=== PATIENT | female | born 1955 | race Caucasian/White ===

== ENCOUNTER 2018-08-07 05:30 | Inpatient (IN) | payer OTHER ==
[2018-08-01 10:18] LABS: HEMATOCRIT 42.7 % (37.0-47.0); HEMOGLOBIN 14.6 gm/dL (12.0-15.0); MCH 31.2 pg (26.0-34.0); MCHC 34.3 g/dL (28.0-37.0); MCV 90.9 fL (80.0-100.0); RBC 4.69 mil/uL (4.20-5.00); WBC 5.3 thou/uL (4.0-11.0)
[2018-08-01 10:20] LABS: URINE BILIRUBIN NEGATIVE (Negative); URINE BLOOD TRACE (Negative); URINE CLARITY CLEAR; URINE COLOR YELLOW; URINE GLUCOSE-RANDOM* NEGATIVE (Negative); URINE KETONES NEGATIVE (Negative); URINE LEUKOCYTES-REFLEX NEGATIVE (Negative); URINE NITRITE-REFLEX NEGATIVE (Negative); URINE PROTEIN (DIPSTICK) NEGATIVE (Negative); URINE SPECIFIC GRAVITY <= 1.005 (1.005-1.035); URINE UROBILINOGEN 0.2 E.U./dl (0.2-1.0)
[2018-08-01 10:26] LABS: ALBUMIN 4.1 g/dL (3.4-5.0); CALCIUM 9.5 mg/dL (8.5-10.1); CREATININE 0.8 mg/dL (0.6-1.0); POTASSIUM 3.9 mmol/L (3.5-5.1)
[2018-08-01 10:27] LABS: PROTIME 10.4 Seconds (9.3-11.4)
--- NOTE | 2018-08-01 11:32 | EKG ---
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 : 1955 Requested By: Marvin Miller Order Number: [id number] MD: Norberto Martinez Measurements Intervals [place] Rate: 72 P: 70 KS: 93 QRS: 19 QRSD: 129 T: -14 QT: 386 QTc: 423 Interpretive Statements Sinus rhythm Short [place] interval Right bundle branch block Compared to ECG 06/25/2008 14:26:53 Short [place] interval more prominent Right bundle-branch block now present Electronically Signed On 08-01-2018 11:32:23 CUSTOMER CARE CONSULTANT by Norberto Martinez [email or web address] ��������������������������������������������� <ELECTRONICALLY SIGNED> ���������������������������������������� By: Norberto Martinez MD ��������������������������������������������� 08/01/18 1132 [id number] Norberto Martinez MD /EPI
[~2018-08-07] VITALS: Ht 165.1 cm; Wt 81.6 kg
[~2018-08-07 05:30] MED LIST: ALLOPURINOL 30300 M1 PO; AMBIEN 10 MG TA10 MG OR; CALCIUM 600+D31 EACH PO; CELEBREX 200 M200 M1 PO; COLACE100 MG PO; ENDOCET 5-3251 EACH; FIBER LAXATIVE500 MG OR; FOLIC ACID0.4 MG PO; FUROSEMIDE 20 M20 M1 PO; LUNESTA1 MG PO; NASONEX17 GM NS; NORCO 5-325 TA1 EACH PO; NORFLEX100 MG PO; PRILOSEC 20 MG20 MG PO; QUINAPRIL 20 MG20 MG OR; SPIRONOLACT/HCT1 TA1 OR; VITAMIN B-12100 MC1 PO; ZANAFLEX4 MG PO; ZYRTEC10 M2 OR
[2018-08-07 15:10] VITALS: BP 146/69
[2018-08-07 19:44] VITALS: BP 135/78
[2018-08-08 00:47] VITALS: BP 94/49
[2018-08-08 04:00] VITALS: BP 93/42
[2018-08-08 04:36] LABS: HEMATOCRIT 31.7 % (37.0-47.0); HEMOGLOBIN 10.7 gm/dL (12.0-15.0); MCHC 33.8 g/dL (28.0-37.0); MCV 91.7 fL (80.0-100.0); RBC 3.46 mil/uL (4.20-5.00); RDW 13.7 % (10.5-14.5); WBC 7.1 thou/uL (4.0-11.0)
--- NOTE | 2018-08-08 07:38 | O ---
[facility] [place] [address] OPERATIVE REPORT Name: JOYCE POLLOCK Room #: 453-P [facility] IN M.R.#: [id number] Admission: 08/07/18 ������������������ Attend Phys: Marvin Miller MD Discharge: ������������������ Date of : 55 Report #: [id number] THIS REPORT FOR: //name// CC: Nat Marinjossue Marvin Miller DATE OF SERVICE: 08/07/2018 PREOPERATIVE DIAGNOSIS: Left knee osteoarthritis. POSTOPERATIVE DIAGNOSIS: Left knee osteoarthritis. PROCEDURE: Left total knee arthroplasty using Navio robotic assistance. SURGEON: Marvin Miller MD CRNA: Mayi Ventura PA-C. INDICATIONS FOR ASSISTANCE: Throughout the case, extensive retraction and manipulation of the knee was required. This was afforded to me by my medical assistant cardiology. ANESTHESIA: LMA with an adductor canal block. IMPLANTS: Rodriguez [employer] Nephew size 5 Journey II BCS posterior stabilized femur, a size 3 tibia, a size 10 polyethylene and a size 29 patella. TOURNIQUET TIME: 68 minutes. ESTIMATED BLOOD LOSS: 100 mL. COMPLICATIONS: None. SPECIMENS: None. CONDITION UPON LEAVING THE OPERATING ROOM: Stable. INDICATIONS FOR PROCEDURE: The patient is a pleasant 62-year-old female with severe left knee osteoarthritis. She failed conservative measures for this and after discussion with her, she elected for left total knee arthroplasty. DESCRIPTION OF PROCEDURE: Risks, benefits, alternatives, complications were discussed in detail with the patient including but not limited to risk of anesthesia, risk of damage to nerves, arteries and blood vessels, risk for infection and bleeding, risk for continued knee pain, and need for reoperation. Informed consent was obtained from the patient. Left knee was appropriately marked in the preoperative holding area. IV Ancef was given for preoperative [facility] [address] [place] [address] OPERATIVE REPORT Name: ARGELIA POLLOCKDandre Harris Room #: 453-P [facility] IN ..#: [id number] Admission: 08/07/18 ������������������ Attend Phys: Marvin Miller MD Discharge: ������������������ Date of : 55 Report #: [id number]. Adductor canal block was placed by Anesthesia. She was brought to the operating room and placed in the supine position on the operating room table. LMA anesthesia was induced without complication. Tourniquet was placed on the left thigh. Left lower extremity was prepped and draped in normal sterile fashion. Timeout was performed properly identifying the patient and procedure as well as the instrumentation and implants. All in the operating room were in agreement. Left lower extremity was exsanguinated. Tourniquet was inflated. Tourniquet time was 68 minutes. A standard midline approach to the knee was made with a 10 blade through the skin. Dissection was taken down sharply to the fascia and deep flaps were developed medially and laterally. A fresh 10 blade was used to make a medial parapatellar arthrotomy and the knee was inspected. There was severe tricompartmental osteoarthritis. ACL and PCL were removed sharply. Reference pins were placed in the femur and the tibia and the knee was digitally mapped using the Starteed robotic system. Intraoperative plan was made and we sized a size 5 femur and a size 3 tibia. After acceptance of the intraoperative plan, a distal femoral cut was made with a Navio bur. The femoral cutting block was then placed and the femoral cuts were made. Attention was then turned to the tibia. The remainder of the menisci removed with Bovie cautery. Tibial resection guide was placed using the Starteed navigation system for placement of the resection guide and the tibial resection was made. After this, flexion and extension gaps were checked and found to have good balance in flexion and extension both medially and laterally. Tibia was sized, found to be a size 3. A size 3 tibial trial was placed, pinned and punched. A size 5 femoral trial was placed and the box cut was made. This was then trialed with a size 9 and then a size 10 polyethylene. The size 10 polyethylene had 1 mm of laxity both medially and laterally throughout range of motion both digitally as well as manually. Her patella was only 15 mm thick and so the patella was resected to leave approximately 11 mm left thickness. A size 29 patellar trial was placed. Knee was taken through range of motion, found to be stable, found to have slight lateral patellar tracking and a limited lateral release was performed of the patella and found to have good patellar tracking thereafter. After this, trial components were removed, bony ends were thoroughly irrigated with normal saline and a final size 3 tibia, a size 5 BCS Oxinium posterior stabilized femur and a size 29 patella were cemented in place using standard cementation techniques. While the cement cured, a periarticular injection consisting of morphine, ropivacaine, epinephrine and Toradol was placed around the knee joint capsule. After the cement cured, the tourniquet was deflated. Hemostasis was obtained with Bovie cautery. Final size 10 polyethylene was placed. A gram of vancomycin was placed deep in the joint. Fascia was closed with 0 Vicryl, skin was closed with 2-0 Vicryl and 3-0 Monocryl. Dermabond and MARIANA dressing was applied. The patient tolerated this procedure well and went to recovery room under care of Anesthesia postoperatively. ��������������������������������������������� <ELECTRONICALLY SIGNED> ���������������������������������������� By: Marvin Miller MD ��������������������������������������������� 08/08/18 0738 [id number] Marvin Miller MD /diane
[2018-08-08 07:52] VITALS: BP 98/45
--- NOTE | 2018-08-08 07:57 | NUR ---
PT ARRIVED TO FLOOR FROM PACU AT 1900 VIA BED S/P LEFT KNEE ARTHROPLASTY. VSS, MARIANA DRSG INTACT HAS A LEAK THAT WILL BE LOOKED AT BY ORTHO TODAY, BUT CLEAN AND DRY, ABLE TO DORSI AND PEDAL FLEX WITHOUT DIFFICULTY, SENSATION INTACT, CAP REFILL BRISK, TOOK SCHEDULED MEDS FOR PAIN AT HS AND HAD GOOD PAIN CONTROL THROUGHOUT THE NIGHT. UP WITH 1 GB AND WALKER TO BSC VOIDING QS.
--- NOTE | 2018-08-08 12:23 | NUR ---
PT ADMITTED RELATED TO LT TOTAL KNEE REPLACEMENT. CM REVIEWED CHART AND SPOKE WITH CARE TEAM. PT IS A&O X4. CM ROLE INTRODUCED. PT INDICATED SHE LIVES IN A HOUSE ALONE WITH NO STEPS TO ENTER AND NO STEPS INSIDE. 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 PT INDICATED NO HOME HEALTH HISTORY. PT INDICATED SHE WILL NEED A FWW UPON DISCHARGE. CM NOTIFIED [facility] AND THEY WILL DELIVER IT TOMORROW. PT INDICATED THAT SHE ANTICIPATES DISCHARGING TO HER MOTHER'S HOUSE IN [place] AND THEN GOING TO HER HOUSE. CM INDICATED THAT CM WOULD TRY TO FINE A HH PROVIDER THAT GOES TO BOTH AREAS. CM CALLED [facility] [place] AND THEY GO TO [place]. CM FAXED FACESHEET FOR THEM TO RUN INSURANCE. IT IS ANTIPATED THAT PT WILL BE MEDICALLY STABLE TO DISHCARGE HOME TOMORROW. CM TO FOLLOW INDICATED WITH DC PLANNING.
--- NOTE | 2018-08-08 12:59 | NUR ---
ASSUMED CARE AT 0700. AXOX4. S/P L KNEE OA WITH . PAIN TX PER MD ORDER. PT/OT EVAL COMPLETE. LOW BP ADDRESSED WITH LINNETTE ROMERO FOR . PER PA, MONITOR FOR NOW AND REPORT IF PT SYMTOMATIC. NO TACHYCARDIA OR DIZZINESS NOTED OR REPORTED WITH EXERTION. PER PT, PT HAS BEEN EXPERIENCING HYPOTENSION SINCE SHE'S LOST LOTS OF WT. L KNEE MARIANA DRESSING INTACT AND EVAL BY PA. NO S/S ACUTE DISTRESS NOTED OR REPORTED AT THIS TIME. WILL CONT TO MONITOR FOR ANY CHANGES IN CONDITION.
[2018-08-08 13:43] VITALS: BP 139/57
--- NOTE | 2018-08-08 16:43 | NUR ---
[facility] IS ABLE TOACCEPT PT FOR HH PT ANTICPATED DC TOMORROW WITH SOC THE . ORDERS TO BE FAXED ONCE COMPLETED.
[2018-08-08 19:28] VITALS: BP 139/64
[2018-08-09 03:57] VITALS: BP 104/51
[2018-08-09 04:15] LABS: HEMATOCRIT 30.3 % (37.0-47.0); HEMOGLOBIN 10.4 gm/dL (12.0-15.0); MCH 31.3 pg (26.0-34.0); MCHC 34.4 g/dL (28.0-37.0); RBC 3.33 mil/uL (4.20-5.00); RDW 13.8 % (10.5-14.5); WBC 5.4 thou/uL (4.0-11.0)
[2018-08-09 07:41] VITALS: BP 135/74
--- NOTE | 2018-08-09 08:06 | NUR ---
PROGRESS PT UP WITH SBA GB AND WALKER TO [facility] MARIANA DRSG INTACT, PEDAL PULSES STRONG GOOD FLEXION AND TOLERATING WEIGHT BEARING. PAIN CONTROLLED WITH ORAL MEDS CONTINUE POC.
[2018-08-09 11:28] VITALS: BP 131/53
[2018-08-09] MEDS ORDERED: NEURONTIN 300300 M1 PO (11:57)
[2018-08-09] MEDS ORDERED: TRI-BUFFERED A325 M1 PO (11:57)
--- NOTE | 2018-08-09 14:35 | NUR ---
ASSUMED CARE AT 0700. AXOX4. LOW GRADE FEVER. REPORTED TO LINNETTE NOONAN. PER PA, GIVE TYLENOL AND MONITOR. TEMP DID COME DOWN AND DENIES TEMP AT THIS TIME. VSS. IV INFILTRATED AND PER PA, NO DOT INSERT ONE. PER PA, PT IS GOOD TO BE DISCHARGED TOMORROW AT ANY TIME. PRESCRPTIONS IN CHARTS. PT WILL BE GOING TO [facility] THIS AFTERNOON PER HOSPITAL PROTOCOL. NO S/S ACUTE DISTRESS NOTED OR REPORTED AT THIS TIME.
[2018-08-09 14:43] VITALS: BP 131/53
--- NOTE | 2018-08-09 14:44 | NUR ---
CARE TEAM INDICATED THAT PT WILL LIKELY BE MEDICALLY STABLE TO DISCHARGE HOME TOMORROW Tuesday08/10/18. PT IS TO HAVE [facility] HH ORDERS WILL NEED TO BE FAXED. PT WAS ISSUED A FWW FROM [facility]. PT IS TO DISCHARGE TO HER MOTHER'S HOUSE AT [address] [place] [address]. ADDRESS GIVEN T [facility]. PT IS TO MOVE TO THIS AFTERNOON. CM TO FOLLOW INDICATED WITH DC PLANNING.
[2018-08-09 16:00] VITALS: BP 149/69
--- NOTE | 2018-08-09 16:06 | NUR ---
PATIENT ARRIVED ON UNIT ABOUT 1600. PATIENT ORIENTED TO UNIT AND SETTLED. PATIENT WALKED TO BATHROOM WITH WALKER, SHE WILL USE A RISER OVER THE TOILET. PATIENT IS CURRENTLY LYING IN BED W/CALL LIGHT WITHIN REACH.
[2018-08-09 19:24] VITALS: BP 125/66
[2018-08-10 05:33] VITALS: BP 149/71
--- NOTE | 2018-08-10 05:39 | NUR ---
STILL RUNNING LOW GRADE FEVER THIS MORNING DESPITE IS, ENC. TO ADD MORE COUGH AND DEEP BREATH, GIVEN TYLENOL ALSO EVEN THOUGH NOT COMPLAINING OF PAIN DUE TO BP IN THE 140, UP WITH MINIMUM ASSIST OF 1 TO THE BATHROOM, GAIT SLOW BUT STEADY, LOOKING FORWARD TO GO HOME TODAY, MARIANA DRESSING TO LEFT KNEE INTACT, PATENT, NO BEEPING NOTED, JANNA HOSE BILAT LEGS, SOME SWELLING TO LEFT LEG, STERITRIPS TO LEFT LEG PATENT, ON ROOM AIR, USING CALL LIGHT APPROPRIATELY, MONITORED.
[2018-08-10 07:02] LABS: HEMATOCRIT 28.5 % (37.0-47.0); HEMOGLOBIN 9.8 gm/dL (12.0-15.0); MCH 31.2 pg (26.0-34.0); MCHC 34.2 g/dL (28.0-37.0); MCV 91.1 fL (80.0-100.0); RBC 3.13 mil/uL (4.20-5.00); RDW 13.4 % (10.5-14.5); WBC 4.8 thou/uL (4.0-11.0)
[2018-08-10 09:00] VITALS: BP 111/48
--- NOTE | 2018-08-10 10:11 | NUR ---
DISCHARGE ORDERS RECEIVED. PATIENT DISCHARING TO HOME WITH [facility]. DISCHARGE/HOME HEALTH ORDERS AND DISCHARGE SUMMARY FAXED TO [facility] INTAKE. CALL PLACED TO JUAN J TO NOTIFY OF DISCHARGE ORDERS FAXED. [facility] ACKNOWLEDGED AND WILL FACILITATE PATIENTS HOME HEALTH NEEDS. UNIT CM/SW AWARE.
--- NOTE | 2018-08-10 10:34 | NUR ---
DISCHARGE NOTE: SW reviewed chart and spoke with nursing. Pt was transferred to [facility] from and is medically stable for discharge home today with HH services. party planner faxed final discharge orders/summary to A . SW met with pt at bedside to discuss discharge plan. Pt is aware and agreeable with plan. Pt's mother will be providing transportation home later today. Pt's roller walker is at the bedisde. Contact info for [facility] HH placed in pt's discharge summary. No additional SW needs identified at this time, but is available to assist should needs arise.
--- NOTE | 2018-08-10 11:45 | NUR ---
ASSUMED PT CARE AT 0700. ASSESSMENT COMPLETED AND IS CHARTED. VSS. PT IS AWAKE, ALERT/ORIENTED X4. REPORTS MILD PAIN RATED 3/10. TAKES MS CONTIN. LEFT KNEE DRESSING IS CDI. EDEMA NOTED TO LEFT LEG PT REPORTS HAS GOTTEN BETTER. NEUROVASCULAR ASSESSMENT INTACT. WILL CONTINUE WITH CURRENT CARE.
[2018-08-10 11:47] VITALS: BP 131/53
--- NOTE | 2018-08-10 13:26 | NUR ---
DISMISSED PT IN STABLE CONDITION HOME VIA WHEELCHAIR WITH [facility].
== END 2018-08-10 13:27 | disposition home health service (06) | DRG 470 ==
LOC: TBA 05:30 → 4W 05:30 → PRE 05:33 → 4W 19:58 → SICU 08-09 15:43 → ENTRNSPT 08-10 13:15 → EDTRNSPTSTS 08-10 13:18 → SICU 08-10 13:27
PROVIDERS: ADMIT Orthopaedic Surgery
PROC: 8E0Y0CZ Robotic Assisted Procedure of Lower Extremity, Open Approach (ICD-10-PCS; principal; 2018-08-07)
PROC: 0SRD069 Replacement of Left Knee Joint with Oxidized Zirconium on Polyethylene Synthetic Substitute, Cemented, Open Approach (ICD-10-PCS; principal; 2018-08-07)
DX: M17.12 Unilateral primary osteoarthritis, left knee (principal); Z79.82 Long term (current) use of aspirin; Z88.6 Allergy status to analgesic agent; Z79.899 Other long term (current) drug therapy
CPT/HCPCS: 10047; 15002; 50010; 50101; 50415; 50954; 51130; 51225; 53000; 53078; 54118; 55372; 56527; 56528; 57095; 57103; 57109; 57110; 57113; 57127; 57180; 62110; 62900; 65060; 70005